=== PATIENT | male | born 1970 | race Caucasian/White ===

== ENCOUNTER 2020-06-16 12:59 | Emergency (ER) | payer OTHER ==
[2020-06-16] MEDS ORDERED: TETANUS/DIPHTHERIA/PERTUSSIS 0.5 ML SYRINGE IM ONE (13:16)
[2020-06-16] MEDS ORDERED: BACITRACIN ZINC OINT 1 PACKET TOP STA (13:16)
--- NOTE | 2020-06-16 13:19 | ED Physician Documentation ---
PD HPI SKIN - Stated complaint Stated Complaint: DOG BITE - Chief complaint Chief Complaint: Wound - History obtained from History obtained from: Patient - Additional information Additional information: 49-year-old man presents with laceration to left third finger on the volar aspect after breaking up a dog fight. He also has abrasions to his right dorsal knuckles. Last tetanus 9 years ago. Dog bite happened today. No other injuries. Moving the hands normally. Review of Systems Skin: reports: Bite / sting PD PAST MEDICAL HISTORY - Past Medical History Past Medical History: Yes Cardiovascular: Hypertension - Past Surgical History Past Surgical History: No - Present Medications Home Medications: Ambulatory Orders Medication Instructions Recorded Confirmed Cyclobenzaprine [Flexeril] 10 mg PO TID PRN #20 tablet 02/07/13 HYDROcod/ACETAM 5/325 [Vicodin 1 - 2 ea PO Q6H #15 tablet 02/07/13 5/325] Ibuprofen [Motrin] 800 mg PO Q8H PRN #30 tablet 02/07/13 Amox/Clav 875/125 [Augmentin 1 tablet PO Q12H 10 Days #20 tablet 06/16/20 875/125 Tab] - Allergies Allergies/Adverse Reactions: Allergies Allergy/AdvReac Type Severity Reaction Status Date / Time No Known Drug Allergies Allergy Verified 06/16/20 13:02 - Social History Does the pt smoke?: No Smoking Status: Never smoker Does the pt drink ETOH?: No Does the pt have substance abuse?: No - Immunizations Immunizations are current?: Yes - POLST Patient has POLST: No PD ED PE NORMAL - Vitals Vital signs reviewed: Yes - General General: Alert and oriented X 3, No acute distress, Well developed/nourished - HEENT HEENT: Atraumatic, PERRL, EOMI - Derm Derm: Normal color, Warm and dry, Other (Laceration of left third finger on the palmar aspect of the distal phalanx. Abrasions to right MCP joints and dorsum of wrist.) - Neuro Neuro: Alert and oriented X 3. No: No motor deficit, No sensory deficit - Psych Psych: Normal mood, Normal affect Results - Vitals Vitals: Vital Signs - 24 hr 06/16/20 13:02 Temperature 36.5 C Heart Rate 80 Respiratory 16 Rate Blood Pressure 143/86 H O2 Saturation 96 Oxygen O2 Source Room air PD MEDICAL DECISION MAKING - ED course ED course: 49-year-old man presented with dog bite that occurred today. He has a puncture wound to the left distal phalanx at the volar aspect. No joint involvement. Education given about wound care and reasons for return. Patient will follow up with [facility]. Tetanus updated and antibiotics prescribed. Departure - Departure Disposition: Home, Self Care Clinical Impression: Dog bite Condition: Good Instructions: ED Bite Animal General, ED Wound Care Prescriptions: Amox/Clav 875/125 [Augmentin 875/125 Tab] 1 tablet PO Q12H 10 Days #20 tablet Comments: You are seen in the emergency department for dog bite. Take your antibiotics as prescribed. Make sure that you keep your wound clean and check it daily for any signs of infection. Return to the emergency department if you have any new or worsening symptoms or other concerns. Follow-up with [facility].
[2020-06-16 13:45] VITALS: BP 127/66
== END 2020-06-16 13:47 | disposition home or self-care (01) ==
LOC: ED 12:59
DX: S61.213A Laceration without foreign body of left middle finger without damage to nail, initial encounter (principal); W54.0XXA Bitten by dog, initial encounter; I10 Essential (primary) hypertension; Z23 Encounter for immunization
CPT/HCPCS: 90471; 90715; 99283; A9270